=== PATIENT | female | born 1995 | race Caucasian/White ===

== ENCOUNTER 2018-06-27 12:28 | Emergency (ER) | payer OTHER ==
[~2018-06-27] VITALS: Ht 157.5 cm; Wt 65.8 kg
[2018-06-27 13:17] VITALS: BP 123/80
--- NOTE | 2018-06-27 15:30 | NUR ---
1ST CALL JAYESH SADLER N/A [id number] CALL JAYESH SADLER N/A
--- NOTE | 2018-06-27 15:55 | NUR ---
3RD CALL N/A JAYESH SADLER
== END 2018-06-27 15:30 | disposition left against medical advice (07) ==
LOC: MED 12:28
DX: M54.5 Low back pain (principal); R10.2 Pelvic and perineal pain; R31.9 Hematuria, unspecified; Z53.21 Procedure and treatment not carried out due to patient leaving prior to being seen by health care provider

== ENCOUNTER 2019-01-10 17:04 | Emergency (ER) | payer MEDICAID, OTHER ==
[~2019-01-10] VITALS: Ht 157.5 cm; Wt 69.4 kg
[2019-01-10 17:11] VITALS: BP 154/88
[2019-01-10] MEDS: ONDANSETRON 4 MG/2 ML VIAL IM ONE (17:44)
[2019-01-10] MEDS: ALUMINUM HYD/MAG/SIMETHICONE 30 ML UDC PO ONE (18:49)
[2019-01-10] MEDS: DICYCLOMINE HCL LIQUID 10 MG/5 ML UDC PO ONE (18:49)
[2019-01-10] MEDS: LIDOCAINE VISCOUS 2% 20 ML UDC PO ONE (18:50)
[2019-01-10 19:48] VITALS: BP 110/77
== END 2019-01-10 19:44 | disposition home or self-care (01) ==
LOC: MED 17:04
DX: K29.70 Gastritis, unspecified, without bleeding (principal); R11.2 Nausea with vomiting, unspecified; Z90.49 Acquired absence of other specified parts of digestive tract
CPT/HCPCS: 81002; 81025; 96372; 99283; J2405